=== PATIENT | female | born 1960 | race Caucasian/White ===

== ENCOUNTER → 2016-12-02 | Outpatient (CLI) | payer MEDICARE, OTHER ==
[~2016-12-02] MED LIST: ALDACTONE100 MG PO; AMBIEN10 MG PO; AUGMENTIN 875-1 EACH PO; AUGMENTIN TAB875 MG PO; BACTRIM DS TAB1 EACH PO; CLARITIN 10MG T10 MG PO; CRESTOR5 MG PO; CYMBALTA 30 MG30 MG PO; IMDUR ER TAB 3030 MG PO; IRON PO; LEVOXYL25 MCG PO; LISINOPRIL5 MG PO; METFORMIN HCL500 MG PO; NEURONTIN 300300 MG PO; NORCO 10-325 T1 EACH PO; NOVOLOG SQ; PROTONIX40 MG PO; TOPROL XL25 MG PO; VICTOZA 1818 MG/3 ML SC
== END ==
LOC: KOH-I 13:54
DX: J32.8 Other chronic sinusitis (principal)
CPT/HCPCS: 70486

== ENCOUNTER → 2016-12-31 | Outpatient (CLI) | payer MEDICARE, OTHER | LOC: RAD 09:17 | DX: M50.90 Cervical disc disorder, unspecified, unspecified cervical region (principal) | CPT/HCPCS: 72040 ==

== ENCOUNTER → 2017-01-21 | Outpatient (CLI) | payer MEDICARE, OTHER | LOC: KOH-I 10:03 | DX: M54.12 Radiculopathy, cervical region (principal); M50.31 Other cervical disc degeneration, high cervical region; M50.21 Other cervical disc displacement, high cervical region; M47.892 Other spondylosis, cervical region | CPT/HCPCS: 72141 ==

== ENCOUNTER → 2021-03-19 | Outpatient (CLI) | payer MEDICARE, OTHER ==
[~2021-03-19] MED LIST changes: +CELEXA20 MG PO; +FEOSOL325 MG PO; +LEVOCETIRIZINE D5 MG PO; +NITROSTAT0.4 MG SL; +NOVOLOG MI100 UNITS/ INJ; +PLAVIX 75 MG TA75 MG PO
== END ==
LOC: CT 08:30
DX: K59.00 Constipation, unspecified (principal); E08.21 Diabetes mellitus due to underlying condition with diabetic nephropathy; R10.2 Pelvic and perineal pain; R14.0 Abdominal distension (gaseous); R10.32 Left lower quadrant pain; Z78.0 Asymptomatic menopausal state; N26.1 Atrophy of kidney (terminal)
CPT/HCPCS: Q9965

== ENCOUNTER → 2021-03-26 | Outpatient (CLI) | payer MEDICARE, OTHER | LOC: KOH-I 13:16 | DX: R91.8 Other nonspecific abnormal finding of lung field (principal) | CPT/HCPCS: 71046 ==

== ENCOUNTER → 2021-08-21 | Outpatient (CLI) | payer MEDICARE, OTHER ==
[~2021-08-21] VITALS: Ht 165.1 cm; Wt 67.6 kg
== END ==
LOC: EROP 12:09
DX: U07.1 COVID-19 (principal)
CPT/HCPCS: 96365

== ENCOUNTER → 2022-03-17 | Outpatient (CLI) | payer MEDICARE, OTHER | LOC: HEART 5 15:30 | DX: R07.9 Chest pain, unspecified (principal) ==